=== PATIENT | female | born 1980 | race Caucasian/White ===

== ENCOUNTER 2017-01-13 12:30 | Emergency (ER) | payer OTHER ==
[2017-01-13 13:55] LABS: Urine Bilirubin Negative (Negative); Urine Glucose Negative (Negative); Urine Nitrite Negative (Negative)
--- NOTE | 2017-01-13 14:52 | RAD ---
INDICATION: Left-sided pelvic pain in a patient with an IUD x2 years COMPARISON: Similar pelvic ultrasound dated July 21, 2015 TECHNIQUE: Real-time transabdominal and transvaginal ultrasound examination of the female pelvis including grayscale and Doppler color flow imaging. FINDINGS: Uterus: The uterus is normal in size and echogenicity measuring 7.1 x 2.2 x 4.3 cm. The endometrial stripe is smooth and uniform measuring 5 mm in thickness. The patient's intrauterine device appears to be appropriately positioned at the fundal height endometrium. In the lower uterine segment there is a small amount of anechoic avascular fluid. Ovaries: The right and left ovary measure 3.5 x 2.0 x 2.4 cm and 3.7 x 2.3 x 3.6 cm, respectively. Normal arterial and venous waveforms are identified. Appearance is within normal limits for the patient's age. There is no free fluid in the cul-de-sac. IMPRESSION: Normal and age-appropriate pelvic ultrasound with an appropriately positioned intrauterine device. A small amount of lower uterine segment endometrial fluid is noted. Please correlate to stage of menstruation.
[2017-01-13 15:06] LABS: Hematocrit 43 % (35-47); Hemoglobin 14.1 g/dl (12.0-16.0); Mean Corpuscular HGB Conc 33 g/dl (31-36); Mean Corpuscular Hemoglobin 30 pg (27-31); Mean Corpuscular Volume 90 fL (80-97); Mean Platelet Volume 9 um3 (7.4-10.4); Red Blood Count 4.72 10^6/ul (4.0-5.4); Red Cell Distribution Width 13 % (10.5-15); White Blood Count 13.4 10^3/ul (3.5-10.8)
[2017-01-13 15:27] LABS: Albumin 4.6 g/dL (3.2-5.2); BUN/Creatinine Ratio 15.2 (8-20); C Reactive Protein 7.06 mg/L (< 5.00); Calcium 9.5 mg/dL (8.6-10.3); EGFR African American 131.1 (>60); EGFR Non-African American 101.9 (>60); Globulin 2.9 g/dL (2-4); Total Bilirubin 0.8 mg/dL (0.2-1.0); Total Protein 7.5 g/dL (6.4-8.9)
[2017-01-13] MEDS ORDERED: Iohexol 300* (CONTRAST) 10 ML SDV IV ONE (16:59)
--- NOTE | 2017-01-13 18:17 | RAD ---
INDICATION: LEFT lower quadrant abdominal pain which began at 1900 hours. Mild nausea. Constant cramping pain. COMPARISON: January 13, 2017 pelvic ultrasound and December 03, 2015 CT. TECHNIQUE: Multidetector CT images were obtained from the lung bases to the ischial tuberosities with 93 mL Omnipaque 300 IV and oral contrast. Multiplanar reformation. REPORT: Unremarkable visualized inferior thorax. Unremarkable liver. Negative for biliary dilatation. Cholelithiasis with a 1.3 cm stone at level of the gallbladder neck. No CT evidence for gallbladder wall thickening or pericholecystic fluid. Unremarkable pancreas and spleen. Negative for CT abnormality of the upper GI or small bowel. Normal communicating retrocecal appendix most conspicuous on coronal reformatted images 41-49. Edematous epiploic appendage at the distal descending colon with mild surrounding fat reticulation consistent with appendagitis epiploica. No additional abnormality of the colon. Negative for ascites, free air, or significant hernias. Normal adrenal glands. Unremarkable kidneys with symmetric nephrograms and pyelograms. Unremarkable ureters and moderately distended urinary bladder as well as the anteverted IUD containing the uterus and adnexal regions. Negative for lymphadenopathy. Unremarkable abdominal aorta and iliac arteries. Physiologic partial distention of the IVC. Negative for suspicious osseous lesions. IMPRESSION: The constellation of findings is consistent with appendagitis epiploica at the distal descending colon. Negative for free air or perienteric abscess. Negative for resulting bowel obstruction.
[2017-01-13] MEDS ORDERED: Ketorolac INJ* 30 MG/ML 1 ML VIAL IV PUSH ONE (19:00)
[2017-01-13 19:44] VITALS: BP 124/69
--- NOTE | 2017-02-24 06:47 | ED ---
Abdominal Pain/Female - HPI Summary HPI Summary: Pt presents w/ new onset LLQ abdominal pain beginning last night 1899. Pain is constant w/ cramping. She has associated sx of mild nausea. Denies fever, chills , vomiting, diarrhea, dysuria, urinary frequency/urgency, vaginal d/c. Last BM this AM - no blood or pain. She has an IUD in place and denies recent pelvic trauma. NOTE: H/o Lt ovary dermoid cyst and Rt ovary hemorrhagic cyst remvoed by Dr. Harris in 11/2015. F/u CT indicated a Rt adnexal cyst as reported by radiology. - History of Current Complaint Chief Complaint: EDAbdPain Stated Complaint: LOWER LT SIDE ABD PAIN Time Seen by Provider: 01/13/17 13:27 Hx Obtained From: Patient Pain Intensity: 0 Pain Scale Used: 0-10 Numeric Allergies/Adverse Reactions: Allergies Allergy/AdvReac Type Severity Reaction Status Date / Time Latex AdvReac Mild See Comment Verified 11/20/15 10:27 debbi Allergy Severe anaphylacti Uncoded 11/20/15 10:27 c PMH/Surg Hx/FS Hx/Imm Hx Previously Healthy: Yes Endocrine/Hematology History: Denies: Hx Blood Disorders, Hx Diabetes, Hx Systemic Lupus Erythematosus, Hx Thyroid Disease, Hx Anemia, Hx Unexplained Bleeding Cardiovascular History: Reports: Other Cardiovascular Problems/Disorders - EVALUATED AT [facility] SUM[facility] 2014 Denies: Hx Congestive Heart Failure, Hx Hypertension, Hx Pacemaker/ICD GI History: Denies: Hx Crohn's Disease, Hx Gall Bladder Disease, Hx Gastroesophageal Reflux Disease, Hx Gastrointestinal Bleed, Hx Irritable Bowel, Hx Ulcer History: Reports: Hx Kidney Infection - AGE 18 Denies: Hx Dialysis, Hx Kidney Stones, Hx Renal Disease Musculoskeletal History: Denies: Hx Rheumatoid Arthritis Sensory History: Denies: Hx Contacts or Glasses, Hx Hearing Aid Opthamlomology History: Denies: Hx Contacts or Glasses Neurological History: Reports: Hx Migraine - INFREQUENT, Other Neuro Impairments /Disorders - ? tia facial numbness and drooping x 1. maldonado Psychiatric History: Reports: Hx Depression - IN THE PAST-NOT CURRENTLY Denies: Hx Panic Disorder - Cancer History Hx Chemotherapy: No - Surgical History Surgery Procedure, Year, and Place: recent ovarian cysts Hx Anesthesia Reactions: No - Immunization History Date of Tetanus Vaccine: less than 10 Date of Influenza Vaccine: last year Infectious Disease History: No Infectious Disease History: Denies: Traveled Outside the [place] in Last 30 Days - Social History Occupation: Student Alcohol Use: Daily Alcohol Amount: 2 GLASSES A DAY Hx Substance Use: No Substance Use Type: Reports: None Hx Tobacco Use: No Smoking Status (MU): Former Smoker Amount Used/How Often: 2-3 CIGS DAILY Length of Time of Smoking/Using Tobacco: 15 YRS Have You Smoked in the Last Year: Yes Review of Systems Negative: Fever, Chills Negative: Chest Pain Negative: Shortness Of Breath Gastrointestinal: Other - see HPI Positive: see HPI Musculoskeletal: Negative Skin: Negative Neurological: Negative Psychological: Normal All Other Systems Reviewed And Are Negative: Yes Physical Exam Triage Information Reviewed: Yes Vital Signs On Initial Exam: Initial Vitals Temp Pulse Resp BP Pulse Ox 98.3 F 72 18 111/62 100 01/13/17 12:33 01/13/17 12:33 01/13/17 12:33 01/13/17 12:33 01/13/17 12:33 Vital Signs Reviewed: Yes Appearance: Positive: Well-Appearing, Well-Nourished, Pain Distress - mild Skin: Positive: Warm, Dry Head/Face: Positive: Normal Head/Face Inspection Eyes: Positive: Normal, EOMI, Conjunctiva Clear - anicteric ENT: Positive: Hearing grossly normal, Pharynx normal - mucosa moist Neck: Positive: Supple - no gross thyromegaly Respiratory/Lung Sounds: Positive: Clear to Auscultation, Breath Sounds Present. Negative: Rales, Rhonchi, Wheezes Cardiovascular: Positive: Normal, RRR, S1, S2. Negative: Murmur, Rub Abdomen Description: Positive: No Organomegaly, Soft, Other: - LLQ w/ TTP - no rebounding. Negative: CVA Tenderness (R), CVA Tenderness (L) Bowel Sounds: Positive: Present Pelvic Exam: Positive: external exam normal, bimanual exam normal, discharge - IUD strings observed. Negative: no cerv. motion tender, no masses, active bleeding Musculoskeletal: Positive: Normal, Strength/ROM Intact Neurological: Positive: Normal, Sensory/Motor Intact, Alert, Oriented to Person Place, Time, CN Intact II-III Psychiatric: Positive: Normal - Mobile Coma Scale Coma Scale Total: 15 Diagnostics - Vital Signs Vital Signs Temp Pulse Resp BP Pulse Ox 01/13/17 19:43 98.3 F 64 12 124/69 01/13/17 12:33 98.3 F 72 18 111/62 100 - Laboratory Lab Results: Lab Results 01/13/17 01/13/17 01/13/17 Range/Units 13:37 13:53 15:00 WBC 13.4 H (3.5-10.8) 10^3/ul RBC 4.72 (4.0-5.4) 10^6/ul Hgb 14.1 (12.0-16.0) g/dl Hct 43 (35-47) % MCV 90 (80-97) fL MCH 30 (27-31) pg MCHC 33 (31-36) g/dl RDW 13 (10.5-15) % Plt Count 199 (150-450) 10^3/ul MPV 9 (7.4-10.4) um3 Neut % (Auto) 59.8 (38-83) % Lymph % (Auto) 30.3 (25-47) % Stark % (Auto) 6.1 (1-9) % Eos % (Auto) 3.2 (0-6) % Baso % (Auto) 0.6 (0-2) % Absolute Neuts (auto) 8.0 H (1.5-7.7) 10^3/ul Absolute Lymphs (auto) 4.1 (1.0-4.8) 10^3/ul Absolute Monos (auto) 0.8 (0-0.8) 10^3/ul Absolute Eos (auto) 0.4 (0-0.6) 10^3/ul Absolute Basos (auto) 0.1 (0-0.2) 10^3/ul Absolute Nucleated RBC 0.01 10^3/ul Nucleated RBC % 0.1 Sodium (133-145) mmol/L Potassium (3.5-5.0) mmol/L Chloride (101-111) mmol/L Carbon Dioxide (22-32) mmol/L Anion Gap (2-11) mmol/L BUN (6-24) mg/dL Creatinine (0.51-0.95) mg/dL Est GFR ( Amer) (>60) Est GFR (Non-Af Amer) (>60) BUN/Creatinine Ratio (8-20) Glucose (70-100) mg/dL Lactic Acid (0.5-2.0) mmol/L Calcium (8.6-10.3) mg/dL Total Bilirubin (0.2-1.0) mg/dL AST (13-39) U/L ALT (7-52) U/L Alkaline Phosphatase (34-104) U/L C-Reactive Protein (< 5.00) mg/L Total Protein (6.4-8.9) g/dL Albumin (3.2-5.2) g/dL Globulin (2-4) g/dL Albumin/Globulin Ratio (1-3) Amylase (29-103) U/L Lipase (11.0-82.0) U/L Urine Color Straw Urine Appearance Clear Urine pH 6.0 (5-9) Ur Specific [place] 1.004 L (1.010-1.030) Urine Protein Negative (Negative) Urine Ketones Negative (Negative) Urine Blood Negative (Negative) Urine Nitrate Negative (Negative) Urine Bilirubin Negative (Negative) Urine Urobilinogen Negative (Negative) Ur Leukocyte Esterase Negative (Negative) Urine Glucose Negative (Negative) C.trachomatis (Amp Det) Negative (Negative) N.gonorrhoeae (Amp Det) Negative (Negative) T.vaginalis (Amp Det) Negative (Negative) 01/13/17 01/13/17 Range/Units 15:00 15:00 WBC (3.5-10.8) 10^3/ul RBC (4.0-5.4) 10^6/ul Hgb (12.0-16.0) g/dl Hct (35-47) % MCV (80-97) fL MCH (27-31) pg MCHC (31-36) g/dl RDW (10.5-15) % Plt Count (150-450) 10^3/ul MPV (7.4-10.4) um3 Neut % (Auto) (38-83) % Lymph % (Auto) (25-47) % Stark % (Auto) (1-9) % Eos % (Auto) (0-6) % Baso % (Auto) (0-2) % Absolute Neuts (auto) (1.5-7.7) 10^3/ul Absolute Lymphs (auto) (1.0-4.8) 10^3/ul Absolute Monos (auto) (0-0.8) 10^3/ul Absolute Eos (auto) (0-0.6) 10^3/ul Absolute Basos (auto) (0-0.2) 10^3/ul Absolute Nucleated RBC 10^3/ul Nucleated RBC % Sodium 136 (133-145) mmol/L Potassium 5.0 (3.5-5.0) mmol/L Chloride 104 (101-111) mmol/L Carbon Dioxide 23 (22-32) mmol/L Anion Gap 9 (2-11) mmol/L BUN 10 (6-24) mg/dL Creatinine 0.66 (0.51-0.95) mg/dL Est GFR ( Amer) 131.1 (>60) Est GFR (Non-Af Amer) 101.9 (>60) BUN/Creatinine Ratio 15.2 (8-20) Glucose 87 (70-100) mg/dL Lactic Acid 1.4 (0.5-2.0) mmol/L Calcium 9.5 (8.6-10.3) mg/dL Total Bilirubin 0.80 (0.2-1.0) mg/dL AST 35 (13-39) U/L ALT 15 (7-52) U/L Alkaline Phosphatase 59 (34-104) U/L C-Reactive Protein 7.06 H (< 5.00) mg/L Total Protein 7.5 (6.4-8.9) g/dL Albumin 4.6 (3.2-5.2) g/dL Globulin 2.9 (2-4) g/dL Albumin/Globulin Ratio 1.6 (1-3) Amylase 37 (29-103) U/L Lipase 20 (11.0-82.0) U/L Urine Color Urine Appearance Urine pH (5-9) Ur Specific [place] (1.010-1.030) Urine Protein (Negative) Urine Ketones (Negative) Urine Blood (Negative) Urine Nitrate (Negative) Urine Bilirubin (Negative) Urine Urobilinogen (Negative) Ur Leukocyte Esterase (Negative) Urine Glucose (Negative) C.trachomatis (Amp Det) (Negative) N.gonorrhoeae (Amp Det) (Negative) T.vaginalis (Amp Det) (Negative) Result Diagrams: 01/13/17 15:00 03/03/17 15:00 Lab Statement: Any lab studies that have been ordered have been reviewed, and results considered in the medical decision making process. Abdominal Pain Fem Course/Dx - Course Course Of Treatment: Initially ordered TVUS as pt has h/o ovarian cysts. Report indicates IUD is in place and there is a small amount of endometrial fluid, neither finding suspicious for causing pt's pain. A CT was then ordered and reveals an appendigitis epiploica at the distal descending colon, the location of pt's pain. This condition is benign and self-limiting. Her pain improved over the course of stay and she was d/c'd w/ anti-inflammatory recommendations. Reviewed danger s/sx of when to return to ED. - Diagnoses Provider Diagnoses: Epiploic appendagitis - Provider Notifications Discussed Care Of Patient With: Dr. Martin Discharge - Discharge Plan Condition: Stable Disposition: HOME Referrals: KAYLI Lopez [Primary Care Provider] - Additional Instructions: Your CT today indicates your pain is most likely caused by a condition called Epiploic Appendagitis. This is a self-limiting condition and is best treated for comfort with NSAID's (ie. advil aka ibuprofen or aleve aka naproxen). Follow-up with your PCP this week. Call Monday to schedule an appointment. *If you develop worsening of pain and/or hard abdomen, fever, chills, vomiting, diarrhea return to ED
== END 2017-01-13 19:43 | disposition home or self-care (01) ==
LOC: ED 12:30
DX: R10.32 Left lower quadrant pain (principal)
CPT/HCPCS: 36415; 74177; 76830; 80053; 81003; 82150; 83605; 83690; 85025; 86140; 87480; 87491; 87510; 87591; 87661; 96374; 99282; J1885; Q9967